=== PATIENT | male | born 1950 | race Caucasian/White ===

== ENCOUNTER 2024-03-11 08:01 | Day surgery (SDC) | payer MEDICARE, OTHER ==
[2024-03-11] MEDS ORDERED: Sodium Chloride 0.9% 10 ML FLUSH Syringe IJ ONE (08:15)
[2024-03-11 08:49] VITALS: RESP 18
[2024-03-11] MEDS: Ak-Dilate OPHTHALMIC*** 1.065 ML, Cyclogyl 1% OPHTH SOL 1.065 ML, GATIFLOXACIN 0.5% OPH... OP ONE (09:01)
[2024-03-11] MEDS: TETRACAINE 0.5% STERI-UNIT SOL OP ONE ×2 (09:01→10:28)
[2024-03-11] MEDS ORDERED: TRIAMCINOLONE 15 MG/ML INJ INTRAOP ONE (10:15)
[2024-03-11] MEDS ORDERED: Epinephrine Preservative Free 1 MG/ML IJ ONE (10:15)
[2024-03-11] MEDS ORDERED: BETADINE 5% OPHTHALMIC 30 ML OP ONE (10:15)
[2024-03-11] MEDS ORDERED: Zofran 4 MG/2 ML VIAL IV PRN (10:15)
[2024-03-11] MEDS ORDERED: VIGAMOX/BSS 0.15% SYR IO ONE (10:15)
[2024-03-11] MEDS ORDERED: DIPRIVAN 200 MG/20 ML IV ONE (11:02)
[2024-03-11] MEDS ORDERED: SUBLIMAZE 100 MCG/2 ML ONE (11:05)
[2024-03-11 11:30] VITALS: TEMP 97.2
[2024-03-11] MEDS: ACETAZOLAMIDE 250 MG TABLET PO ONE (11:36)
[2024-03-11 11:47] VITALS: BP 113/85; PULSE 56; O2SAT 97
== END 2024-03-11 11:50 | disposition home or self-care (01) ==
LOC: SDC 08:01
PROVIDERS: ATTEND Ophthalmology
DX: H25.811 Combined forms of age-related cataract, right eye (principal); E11.9 Type 2 diabetes mellitus without complications
CPT/HCPCS: 66982; 82947; 93005; 99100; C1780; J0171; J2704; J3010; A9270-GY